=== PATIENT | female | born 1990 | race Caucasian/White ===

== ENCOUNTER 2019-02-02 00:37 | Emergency (ER) | payer OTHER ==
[~2019-02-02] VITALS: Ht 160 cm; Wt 53.5 kg
[2019-02-02 00:40] VITALS: BP 116/79
== END 2019-02-02 01:49 | disposition home or self-care (01) ==
LOC: ER 00:37
DX: S61.511A Laceration without foreign body of right wrist, initial encounter (principal); Z88.1 Allergy status to other antibiotic agents; W26.0XXA Contact with knife, initial encounter; Y92.89 Other specified places as the place of occurrence of the external cause; Y93.89 Activity, other specified; Y99.8 Other external cause status